=== PATIENT | female | born 1965 | race Caucasian/White ===

== ENCOUNTER 2025-08-31 07:56 | Day surgery (SDC) | payer OTHER ==
[~2025-08-31] VITALS: Ht 157.5 cm; Wt 82.0 kg
[~2025-08-31 07:56] MED LIST: ALL DAY ALLERGY10 M3 PO; ASPIRIN81 MG PO; ATORVASTATIN CA40 MG PO; BOTOX200 UNIT INJ; CARDURA2 MG PO; CEFADROXIL500 MG PO; CELECOXIB200 MG PO; CELEXA20 MG PO; CIPRO500 MG PO; CO Q-10200 MG PO; DHEA MICRONIZED5 GM TOP; ESTRADIOL42.5 GM; ESTRING1 EACH PV; FAMOTIDINE20 MG PO; FLINTSTONES CO1 EACH PO; GLUCOSAMINE HC500 MG PO; IBLOOD GLUCOSE TEST STRIP 1 EA TEST VI PRN; KRILL OIL 3001 EACH PO; LACTATED RINGER'S 1,000 ML IV SCH; LIDOCAINE HCL 1% 5 ML SDV INJ ONE; LISINOPRIL10 MG PO; MAGNESIUM400 M1 PO; MIRTAZAPINE15 MG PO; MOBIC15 MG PO; NURTEC ODT75 MG PO; OZEMPIC0.25 MG/02 SUB-Q; PANTOPRAZOLE SO40 MG PO; PHENAZOPYRIDIN200 MG; PRISTIQ ER25 MG PO; PROBIOTIC1 EAC3 PO; PROTRIPTYLINE HC5 MG PO; PYRIDIUM200 MG PO; TESTOSTERONE CYP5 GM TOP; VITAMIN B-2100 MG PO; VITAMIN D3125 MCG PO
[2025-08-31] MEDS ORDERED: KELP150 MCG PO (08:18)
[2025-08-31] MEDS ORDERED: ATENOLOL25 MG PO (08:18)
[2025-08-31 08:19] VITALS: BP 119/78
[2025-08-31] MEDS ORDERED: SELENIUM50 MCG PO (08:19)
[2025-08-31] MEDS ORDERED: fentaNYL citrate 100 MCG/2 ML VIAL ONE (09:34)
[2025-08-31] MEDS ORDERED: LIDOCAINE HCL 2% 5 ML SDV ONE (09:35)
[2025-08-31] MEDS ORDERED: GLUCAGON,HUMAN RECOMBINANT 1 MG/ML VIAL ONE (09:51)
[2025-08-31] MEDS ORDERED: PHENYLEPHRINE HCL IN 0.9% NACL 1 MG/10 ML SYR ONE (10:21)
--- NOTE | 2025-08-31 10:59 | NUR ---
08/31/25 1059 Pat Parikh 1054: PT ARRIVES TO PACU DROWSY AND REACTIVE. PT IS CONNECTED TO MONITORS. REPORT RECEIVED FROM APPEALS OFFICER AND SEARCH OPTIMIZATION ANALYST.
[2025-08-31 11:26] VITALS: BP 125/77
== END 2025-08-31 11:36 | disposition home or self-care (01) ==
LOC: DS 07:56 → OPS 07:56 → DS 11:15 → OPS 11:15
PROVIDERS: ATTEND Surgery
PROC: 0DB68ZX Excision of Stomach, Via Natural or Artificial Opening Endoscopic, Diagnostic (ICD-10-PCS; 2025-08-31)
PROC: 0DBN8ZX Excision of Sigmoid Colon, Via Natural or Artificial Opening Endoscopic, Diagnostic (ICD-10-PCS; principal; 2025-08-31 09:00)
PROC: 0DB48ZX Excision of Esophagogastric Junction, Via Natural or Artificial Opening Endoscopic, Diagnostic (ICD-10-PCS; 2025-08-31 09:00)
DX: Z12.11 Encounter for screening for malignant neoplasm of colon (principal); K22.70 Barrett's esophagus without dysplasia; K21.9 Gastro-esophageal reflux disease without esophagitis; K63.5 Polyp of colon; K44.9 Diaphragmatic hernia without obstruction or gangrene; K57.30 Diverticulosis of large intestine without perforation or abscess without bleeding; K56.699 Other intestinal obstruction unspecified as to partial versus complete obstruction; K29.50 Unspecified chronic gastritis without bleeding; Z53.8 Procedure and treatment not carried out for other reasons; Z88.8 Allergy status to other drugs, medicaments and biological substances; Z91.040 Latex allergy status
CPT/HCPCS: 00813; 88305; J0165; J1610; J2003; J2704; J3010; J7121